=== PATIENT | male | born 1985 | race Caucasian/White ===

== ENCOUNTER 2019-05-18 07:01 | Emergency (ER) | payer BC ==
[2019-05-18 07:07] VITALS: BP 164/95
[2019-05-18] MEDS ORDERED: MECLIZINE HCL 25 MG TABLET PO ONE (09:24)
[2019-05-18] MEDS ORDERED: PSEUDOEPHEDRINE HCL 30 MG TABLET PO ONE (09:24)
--- NOTE | 2019-05-18 09:29 | ER Document Report ---
HPI - HPI Patient complains to provider of: right ear pain, congestion Time Seen by Provider: 05/18/19 09:04 Onset: This morning Onset/Duration: Gradual Quality of pain: Achy Pain Level: 1 Context: Patient presents complaining of right ear pressure, sinus congestion and altered hearing to the right ear. Patient states he feels as though his hearing on a different plane that noises appear louder in the right ear. Patient denies any fever or drainage from the ear. Patient states that he would occasionally have vertigo symptoms but he has had this chronically and he gets symptoms sporadically. Patient states that he feels as though his hearing is due to congestion symptoms. Patient denies any headache pain. Patient denies any vertigo symptoms today. Associated Symptoms: Earache, Rhinnorhea, Sinus pain/drainage. denies: Fever, Headache Exacerbated by: Denies Relieved by: Denies Similar symptoms previously: No Recently seen / treated by doctor: No - ROS ROS below otherwise negative: Yes Systems Reviewed and Negative: Yes All other systems reviewed and negative - CONSTITUTIONAL Constitutional: DENIES: Fever, Chills - EENT EENT: REPORTS: Ear Pain. DENIES: Eye problems - NEURO Neurology: REPORTS: Dizzinesss / Vertigo. DENIES: Headache, Weakness - CARDIOVASCULAR Cardiovascular: DENIES: Chest pain - RESPIRATORY Respiratory: DENIES: Trouble Breathing, Coughing - GASTROINTESTINAL Gastrointestinal: DENIES: Nausea, Patient vomiting - DERM Skin Problems: None Past Medical History - General Information source: Patient - Social History Smoking Status: Never Smoker Frequency of alcohol use: None Drug Abuse: None Occupation: [employer] Family History: Reviewed & Not Pertinent Patient has suicidal ideation: No Patient has homicidal ideation: No - Medical History Medical History: Negative Renal/ Medical History: Denies: Hx Peritoneal Dialysis Past Surgical History: Reports: Hx Cholecystectomy, Hx Orthopedic Surgery - R wrist Vertical Provider Document - CONSTITUTIONAL Agree With Documented VS: Yes Exam Limitations: No Limitations General Appearance: WD/WN, No Apparent Distress - INFECTION CONTROL TRAVEL OUTSIDE OF THE [place] IN LAST 30 DAYS: No - HEENT HEENT: Atraumatic, Normal ENT Exam, Normocephalic Notes: No nystagmus, patient's hearing normal to spoken word, patient able to hear fingers gently rubbing together. No tenderness with movement of right helix. No mastoid tenderness or swelling. - NECK Neck: Normal Inspection, Supple. negative: Lymphadenopathy-Left, Lymphade nopathy-Right - RESPIRATORY Respiratory: Breath Sounds Normal, No Respiratory Distress - CARDIOVASCULAR Cardiovascular: Regular Rate, Regular Rhythm, No Murmur - MUSCULOSKELETAL/EXTREMETIES Musculoskeletal/Extremeties: MAEW - NEURO Level of Consciousness: Awake, Alert, Appropriate - DERM Integumentary: Warm, Dry, No Rash Course - Re-evaluation Re-evalutation: 05/18/19 09:27 Patient presents complaining of altered hearing to right ear. Patient states that noises are louder than normal and he has some fullness to the ear. Patient states that he frequently will have problems involving his right ear and requests information for follow-up with a specialist for further evaluation. Patient does complain of congestion symptoms as well. Patient also reports chronic vertigo that he gets periodically only with position changes. Patient without any focal neurologic deficits. Will treat for congestion symptoms as well as vertigo providing information on outpatient follow-up. Good return precautions discussed. - Vital Signs Vital signs: Temp Pulse Resp BP Pulse Ox 97.8 F 76 16 164/95 H 100 05/18/19 07:05 05/18/19 07:05 05/18/19 07:05 05/18/19 07:05 05/18/19 07:05 Discharge - Discharge Clinical Impression: Alteration in hearing status, Sinus congestion Condition: Stable Disposition: HOME, SELF-CARE Instructions: Vertigo ([facility]) Additional Instructions: Return immediately for any new or worsening symptoms Followup with your primary care provider, call tomorrow to make a followup appointment Follow-up with an regional clinical research associate for further evaluation Prescriptions: Meclizine HCl [Antivert 25 mg Tablet] 25 mg PO ASDIR PRN #20 tablet PRN Reason: Fluticasone Propionate [Flonase Nasal [place] 50 Mcg/[place] 16 gm] 2 spray NASL DAILY #1 bottle Guaifenesin/Dextromethorphan [Mucinex Dm ER 1,200-60 mg Tab] 1 each PO Q12 PRN #12 tab.er.12h PRN Reason: Forms: Return to Work Referrals: [facility] [Provider Group] - Follow up in 3-5 days
== END 2019-05-18 09:40 | disposition home or self-care (01) ==
LOC: ER 07:01
DX: R09.81 Nasal congestion (principal); R29.818 Other symptoms and signs involving the nervous system; J34.89 Other specified disorders of nose and nasal sinuses; H92.01 Otalgia, right ear; R42 Dizziness and giddiness

== ENCOUNTER 2020-02-08 03:39 | Emergency (ER) | payer BC | END 2020-02-08 04:10 | disposition left against medical advice (07) | LOC: ER 03:39 | DX: Z53.21 Procedure and treatment not carried out due to patient leaving prior to being seen by health care provider (principal) ==